=== PATIENT | male | born 1945 | race Caucasian/White ===

== ENCOUNTER 2022-06-10 11:19 | Emergency (ER) | payer MEDICARE, SELFPAY ==
[2022-06-10 11:47] VITALS: BP 141/85; PULSE 69; RESP 16; TEMP 36.2; O2SAT 100
--- NOTE | 2022-06-10 14:43 | ED_ITS ---
HPI - Allergic Reaction General: Chief complaint: Allergic Reaction Stated complaint: Rash, breaking out after meds change Time Seen by Provider: 06/10/22 14:43 Source: patient Mode of arrival: ambulatory History of Present Illness: HPI narrative: 76-year-old male comes in complaining of a rash she has a mild coalescing rash more than the skin folds. It began over the last several days he recently was started on lisinopril he stopped it after a few days the rash has begun to michael since that time. He has noticed his blood pressure going up MD complaint: allergic reaction Onset (ago): day(s) Associated symptoms: Reports rash; Deny abdominal pain, difficulty breathing, dysphagia, dizziness, facial swellin g, hoarseness, itching, lip swelling, nausea, tongue swelling or vomiting Severity: mild Treatment prior to arrival: none Previous Allergic Reaction History: none Review of Systems Const: Denies: fever(s), chills, body aches, change in appetite, fatigue or malaise ENMT: Denies: hoarseness Card: Denies: chest pain, edema, dyspnea on exertion or orthopnea Resp: Denies: dyspnea, productive cough or non-productive cough GI: Denies: abdominal pain, nausea, vomiting or dysphagia : Denies: flank pain, difficulty urinating, dysuria, urinary frequency or urinary urgency Skin/Breast: Denies: rash or pruritus Neuro: Denies: dizziness All/Imm: Denies: tongue swelling or facial swelling [facility] ED PFSH: Medical History (Updated 06/10/22 @ 15:29 by Jose Luis Robles DO) Hypertension Social History (Updated 06/10/22 @ 15:30 by Jose Luis Robles DO) Smoking and tobacco status: never smoked Alcohol intake: never Physical Exam Const: COMMON NORMALS: no acute distress GENERAL APPEARANCE: cooperative and comfortable ORIENTATION/CONSCIOUSNESS: Yes awake, Yes oriented to person, Yes oriented to place and Yes oriented to time HENMT: COMMON NORMALS: normocephalic, atraumatic and hearing grossly normal bilaterally HEAD & SCALP: normocephalic and atraumatic Neck/C-Spine: COMMON NORMALS: no JVD Resp: COMMON NORMALS: normal respiratory effort, No retractions, No use of accessory muscles and clear to auscultation bilaterally AUSCULTATION: clear to auscultation bilaterally Cardio: COMMON NORMALS: no JVD, regular rate, regular rhythm and No murmurs present (Cardio) RATE: regular rate RHYTHM: regular rhythm GI: COMMON NORMALS: Normal to inspection, nondistended, normoactive bowel sounds present, Soft to palpation and No hepatosplenomegaly present AUSCULTATION: Yes normoactive bowel sounds PALPATION: Yes Soft to palpation, No Tenderness to palpation present (GI), No Guarding due to palpation present (GI) and Yes No hepatosplenomegaly present Extremity: COMMON NORMALS: normal to inspection, capillary refill normal, no clubbing, cyanosis or edema, no calf tenderness and no pedal edema Neuro: SENSORIUM/ORIENTATION: Yes oriented to person, Yes oriented to place and Yes oriented to time Skin: OTHER: Faint coalescing rash mildly raised no vesicles nor induration no excoriation Course Vital Signs: Vital signs: Vital Signs Temperature 97.1 F L 06/10/22 11:47 Pulse Rate 69 06/10/22 11:47 Respiratory Rate 16 06/10/22 11:47 Blood Pressure 141/85 06/10/22 11:47 Pulse Oximetry 100 06/10/22 11:47 MDM - Allergic Reaction Medical Decision Making Mild rash already improving per the patient. Continue to stay off of the lisinopril add back amlodipine 5 daily recheck with primary care within a week to reassess blood pressure. Short course steroids Discharge Plan Discharge Patient Disposition: Home Clinical Impression: Adverse reaction to drug Condition: Stable Prescriptions: New amlodipine 5 mg tablet 5 mg PO DAILY Qty: 30 0RF Medrol (Farooq) 4 mg tablets,dose pack See Rx Instructions .ROUTE .COMPLEX Qty: 21 0RF Rx Instructions: orally per package directions No Action amoxicillin-pot clavulanate [Augmentin] 875-125 mg tablet 1 tab PO BID 10 Days Qty: 20 0RF furosemide 40 mg tablet 40 mg PO DAILY 0RF metoprolol tartrate 50 mg tablet 50 mg PO DAILY 0RF omeprazole 20 mg tablet,delayed release (DR/EC) 20 mg PO DAILY 0RF potassium chloride 20 mEq tablet extended release 20 meq PO DAILY 0RF rosuvastatin 40 mg tablet 40 mg PO DAILY 0RF fluoride (sodium) 0.2 % solution 10 ml dental DAILY 0RF tamsulosin 0.4 mg capsule 0.4 mg PO DAILY 0RF trazodone 100 mg tablet 100 mg PO DAILY 0RF Discharge Orders: Discharge ED (Routine); Ordered 06/10/22 Ordered By: Jose Luis Robles Referrals: Danelle Tony MD [Primary Care Provider] - Patient Instructions: Opioid Safety Activity Restrictions/Additional Instructions: Stop lisinopril, start amlodipine 5 mg daily. Prednisone taper for 1 week. Follow-up with your primary care doctor as scheduled on June 18 to reevaluate blood pressure. Coding Level of Care Code ED [employer] for Olena Barragan
[2022-06-10 14:53] VITALS: BP 173/90; PULSE 86; O2SAT 98
[2022-06-10 15:00] VITALS: BP 172/97; PULSE 82; O2SAT 96
[2022-06-10 15:45] VITALS: BP 159/84
== END 2022-06-10 15:20 | disposition home or self-care (01) ==
PROVIDERS: Emergency Provider Family Medicine; PCP Family Medicine
DX: L27.0 Generalized skin eruption due to drugs and medicaments taken internally (principal); T46.4X5A Adverse effect of angiotensin-converting-enzyme inhibitors, initial encounter; I10 Essential (primary) hypertension
CPT/HCPCS: 99283

== ENCOUNTER 2022-08-01 08:14 | Outpatient (CLI) | payer MEDICARE, OTHER, SELFPAY ==
--- NOTE | 2022-08-01 09:10 | ECG_ITS ---
[facility] Test Date: 2022-08-01 Pat Name: Marielos Vasquez Department: Room: Gender: Male Shearing Shed Hand: : 1945 Requested By: Perez Carrasquillo Order Number: [id number] Madai MD: Luis Guzman M.D. Measurements Intervals [place] Rate: 53 P: 42 OR: 230 QRS: -8 QRSD: 111 T: 80 QT: 482 QTc: 454 Interpretive Statements SINUS BRADYCARDIA WITH FIRST DEGREE AV BLOCK MODERATE INTRAVENTRICULAR CONDUCTION DELAY [110+ ms QRS DURATION] NONSPECIFIC ST & T-WAVE ABNORMALITY PROLONGED QT INTERVAL No previous ECG available for comparison Electronically Signed On 08-02-2022 14:42:33 CDT by Luis Guzman M.D. [email or web address]
== END 2022-08-01 08:15 | disposition home or self-care (01) ==
PROVIDERS: PCP Family Medicine; Visit Provider Specialist
DX: Z01.810 Encounter for preprocedural cardiovascular examination (principal); I44.0 Atrioventricular block, first degree; R00.1 Bradycardia, unspecified; H65.21 Chronic serous otitis media, right ear; H90.3 Sensorineural hearing loss, bilateral
CPT/HCPCS: 93005

== ENCOUNTER → 2022-12-26 08:20 | Outpatient (BNVA) | payer OTHER, SELFPAY | PROVIDERS: PCP Family Medicine; Visit Provider Internal Medicine Rheumatology | DX: Z79.899 Other long term (current) drug therapy (principal); M19.90 Unspecified osteoarthritis, unspecified site; M45.6 Ankylosing spondylitis lumbar region; R76.8 Other specified abnormal immunological findings in serum; Z11.59 Encounter for screening for other viral diseases; R06.02 Shortness of breath; J92.9 Pleural plaque without asbestos; J44.9 Chronic obstructive pulmonary disease, unspecified | CPT/HCPCS: 36415; 80076; 81001; 82306; 82565; 82570; 84156; 85025; 85651; 86140; 86160; 86162; 86200; 86235; 86255; 86376; 86431; 86480; 86704; 86800; 86803; 86812; 87340 ==

== ENCOUNTER → 2022-12-26 08:20 | Outpatient (BNVA) | payer OTHER, SELFPAY | PROVIDERS: PCP Family Medicine; Visit Provider Internal Medicine Rheumatology | DX: M19.90 Unspecified osteoarthritis, unspecified site (principal); Z79.899 Other long term (current) drug therapy; R76.8 Other specified abnormal immunological findings in serum; Z11.59 Encounter for screening for other viral diseases; R06.02 Shortness of breath; J44.9 Chronic obstructive pulmonary disease, unspecified; I51.7 Cardiomegaly; M77.8 Other enthesopathies, not elsewhere classified; Z11.1 Encounter for screening for respiratory tuberculosis; Z79.52 Long term (current) use of systemic steroids; K21.9 Gastro-esophageal reflux disease without esophagitis | CPT/HCPCS: 73130; 73630; 99204 ==

== ENCOUNTER 2023-01-09 07:46 | Outpatient (CLI) | payer OTHER, SELFPAY | END 2023-01-09 07:47 | disposition home or self-care (01) | LOC: RT 07:47 | PROVIDERS: PCP Family Medicine; Visit Provider Internal Medicine Rheumatology | DX: R06.02 Shortness of breath (principal); M19.90 Unspecified osteoarthritis, unspecified site; J92.9 Pleural plaque without asbestos | CPT/HCPCS: 94010; 94726; 94729 ==

== ENCOUNTER 2023-01-28 09:27 | Outpatient (CLI) | payer OTHER, SELFPAY ==
--- NOTE | 2023-01-28 10:00 | CT_ITS ---
WS: [id number] CT CHEST WITHOUT INTRAVENOUS CONTRAST HISTORY: R06.02 - Shortness of breath TECHNIQUE: Contiguous 5 mm axial imaging performed on the thorax. Coronal and sagittal reformats are submitted. All CT scans at [facility] use at least one of these dose optimization techniques: automated exposure control; mA and/or kV adjustment per patient size (includes targeted exams where dose is matched to clinical indication); or iterative reconstruction. CONTRAST: None DLP: 503.61 mGy.cm COMPARISON: None available. Lungs and central airway: Very small micronodules in the periphery RIGHT lower lobe. No mass or pneum onia. Pleura: Normal. No pleural effusion. Heart and pericardium: Very mild cardiomegaly. Prior CABG. Extensive coronary artery calcifications. Aortic valve replacement. Mediastinum and shweta: No adenopathy. Vessels: Mild atherosclerosis aorta. Normal size pulmonary artery. Chest wall and lower neck: No soft tissue masses. Upper abdomen: Normal visualized adrenal glands and gallbladder. No significant hiatal hernia. Osseous structures: No destructive bone lesions. Prior plate and screw fixation LEFT clavicle. CT/CT chest wo con [id number] IMPRESSION: 1. No pulmonary mass or pneumonia. 2. Prior CABG and aortic valve replacement. 3. No adenopathy. 4. No pulmonary fibrosis.
== END 2023-01-28 09:28 | disposition home or self-care (01) ==
LOC: RAD 09:29
PROVIDERS: PCP Family Medicine; Visit Provider Internal Medicine Rheumatology
DX: R06.02 Shortness of breath (principal); M19.90 Unspecified osteoarthritis, unspecified site; Z95.1 Presence of aortocoronary bypass graft; Z95.2 Presence of prosthetic heart valve
CPT/HCPCS: 36415; 71250; 80076; 81001; 82306; 82565; 82570; 84156; 85025; 85651; 86140; 86160; 86162; 86200; 86235; 86255; 86376; 86431; 86480; 86704; 86800; 86803; 86812; 87340

== ENCOUNTER → 2023-02-12 12:41 | Outpatient (BNVA) | payer OTHER, SELFPAY | PROVIDERS: PCP Family Medicine; Visit Provider Internal Medicine Rheumatology | DX: M19.90 Unspecified osteoarthritis, unspecified site (principal); Z79.899 Other long term (current) drug therapy; I51.7 Cardiomegaly; R06.02 Shortness of breath; J44.9 Chronic obstructive pulmonary disease, unspecified; R07.89 Other chest pain | CPT/HCPCS: 99214 ==

== ENCOUNTER 2023-04-23 10:15 | Outpatient (CLI) | payer OTHER, SELFPAY ==
[2023-04-23 10:40] LABS: Basophils # 0.1 10^3/uL (0.0-0.1); Basophils % 1.5 %; Eosinophils # 0.5 10^3/uL (0.0-0.8); Eosinophils % 8.7 %; Hematocrit 44.9 % (42.0-52.0); Hemoglobin 14.8 g/dL (11.7-16.6); Lymphocytes # 1.3 10^3/uL (0.8-4.8); Lymphocytes % 20.9 %; Mean Corpuscular Hemoglobin 29.2 pg (28.0-34.0); Mean Corpuscular Volume 88.7 fl (80-94); Mean Platelet Volume 10.5 fL (7.4-10.4); Monocytes # 0.7 10^3/uL (0.2-0.9); Monocytes % 12.1 %; Neutrophils # 3.46 10^3/uL (1.8-7.7); Neutrophils % 56.5 %; Nucleated Red Blood Cells % 0 %; Platelet Count 157 10^3/cmm (130-400); Red Blood Count 5.06 10^6/uL (4.1-5.3); Red Cell Distribution Width 12.9 % (12.1-15.1); White Blood Count 6.1 10^3/uL (4.0-10.0)
[2023-04-23 11:40] LABS: Alanine Aminotransferase 31 U/L (0-41); Albumin Level 4.4 g/dL (3.5-5.2); Alkaline Phosphatase 83 U/L (40-130); Globulin 2.4 g/dL (1.3-4.6); Thyroid Stimulating Hormone 2.46 uIU/mL (0.27-4.20); Total Bilirubin 0.6 mg/dL (0.15-1.2); Total Protein 6.8 g/dL (6.6-8.7)
[2023-04-23 14:20] LABS: Free T4 Free Thyroxine 1.17 ng/dL (0.82-1.77)
[2023-04-23 15:38] LABS: Aspartate Amino Transferase 27 U/L (0-40)
== END 2023-04-23 10:16 | disposition home or self-care (01) ==
PROVIDERS: PCP Family Medicine; Visit Provider Internal Medicine Rheumatology
DX: M19.90 Unspecified osteoarthritis, unspecified site (principal); I51.7 Cardiomegaly; Z79.899 Other long term (current) drug therapy
CPT/HCPCS: 36415; 80076; 82565; 84439; 84443; 85025; 86140

== ENCOUNTER → 2023-05-07 13:30 | Outpatient (BNVA) | payer OTHER, SELFPAY | PROVIDERS: PCP Family Medicine; Visit Provider Internal Medicine Rheumatology | DX: R76.8 Other specified abnormal immunological findings in serum (principal); M19.90 Unspecified osteoarthritis, unspecified site; Z79.899 Other long term (current) drug therapy | CPT/HCPCS: 99214 ==

== ENCOUNTER 2023-07-23 09:33 | Outpatient (CLI) | payer OTHER, SELFPAY ==
[2023-07-23 10:17] LABS: Basophils # 0.1 10^3/uL (0.0-0.1); Eosinophils # 0.6 10^3/uL (0.0-0.8); Hematocrit 45.9 % (37-53); Lymphocytes # 1.3 10^3/uL (0.8-4.8); Lymphocytes % 19.9 %; Mean Corpuscular HGB Conc 33.6 g/dL (30-55); Mean Corpuscular Hemoglobin 30.4 pg (27-33); Mean Corpuscular Volume 90.5 fl (82-101); Mean Platelet Volume 10.8 fL (7.4-10.4); Monocytes # 0.7 10^3/uL (0.2-0.9); Monocytes % 9.9 %; Neutrophils # 4.01 10^3/uL (1.8-7.7); Neutrophils % 59.9 %; Nucleated Red Blood Cells % 0 %; Platelet Count 167 10^3/cmm (157-399); Red Blood Count 5.07 10^6/uL (3.85-5.65); Red Cell Distribution Width 12.9 % (12.1-15.1); White Blood Count 6.69 10^3/uL (3.29-11.43)
[2023-07-23 10:39] LABS: Albumin Level 4.5 g/dL (3.5-5.2); Alkaline Phosphatase 77 U/L (40-130); Globulin 2.6 g/dL (1.3-4.6); Total Bilirubin 0.6 mg/dL (0.15-1.2); Total Protein 7.1 g/dL (6.6-8.7)
[2023-07-23 11:06] LABS: Alanine Aminotransferase 22 U/L (0-41); Aspartate Amino Transferase 21 U/L (0-40)
== END 2023-07-23 09:34 | disposition home or self-care (01) ==
PROVIDERS: PCP Family Medicine; Visit Provider Internal Medicine Rheumatology
DX: M19.90 Unspecified osteoarthritis, unspecified site (principal); Z79.899 Other long term (current) drug therapy
CPT/HCPCS: 36415; 80076; 82565; 85025; 86140

== ENCOUNTER → 2023-07-30 13:54 | Outpatient (BNVA) | payer OTHER, SELFPAY | PROVIDERS: PCP Family Medicine; Visit Provider Internal Medicine Rheumatology | DX: M19.90 Unspecified osteoarthritis, unspecified site (principal); Z79.899 Other long term (current) drug therapy; R76.8 Other specified abnormal immunological findings in serum | CPT/HCPCS: 99214 ==

== ENCOUNTER 2023-11-10 09:11 | Outpatient (CLI) | payer OTHER, SELFPAY | END 2023-11-10 09:12 | disposition home or self-care (01) | LOC: LAB 09:14 | PROVIDERS: PCP Family Medicine; Visit Provider Specialist | DX: Z01.812 Encounter for preprocedural laboratory examination (principal) | CPT/HCPCS: 36415; 80048; 80076; 82565; 85025; 86140; 93005 ==

== ENCOUNTER 2023-11-25 05:42 | Day surgery (SDC) | payer OTHER, SELFPAY ==
[2023-11-25] VITALS (10 sets, daily range): BP systolic 114–153; BP diastolic 64–91; PULSE 51–81; RESP 16–23; TEMP 36.1–36.6; O2SAT 91–95; BMI 31.1
[2023-11-25] MEDS: sodium chloride 0.9% 1,000 ML 30 ML IV (06:30)
--- NOTE | 2023-11-25 06:44 | W.PM.OPSUD ---
Surgery/Procedure H&P Update DATE OF PROCEDURE: November 25, 2023 DATE H&P PERFORMED: 11/10/23 PRIMARY INDICATION FOR PROCEDURE: Chronic Eustachian Tube Dysfunction, Right Ear PLANNED PROCEDURE: Operation Date: 11/25/23 07:00 Proposed Procedures p R Myringotomy and Tubes [id number],h65.21(Right) - Perez Gore MD
[2023-11-25] MEDS: ciprofloxacin-dexameth Otic Susp 7.5 mL Btl 4 DROP EAR-BOTH (07:11)
[2023-11-25] MEDS: EPINEPHrine 1 mg/mL INJ 0.5 MG XX (07:15)
--- NOTE | 2023-11-25 07:25 | PM.OP ---
Operative Report Date of procedure: November 25, 2023 Pre-op diagnosis: Chronic Eustachian Tube Dysfunction, Right ear Post-op diagnosis: same Post-op findings: Otitis media with effusion, Right ear Tympanosclerosis, right ear Procedure done: Right ear myringotomy with 'T' tube placement Implants: Right 'T' Tube Specimens removed/disposition: None Pathology: None Surgeon: Perez Gore Surgeon: Perez Gore MD Anesthesia: General Estimated blood loss (mL): 1 IV fluids (mL): 200 Complications: None Findings: Otitis media with effusion, Right ear Tympanosclerosis, Right Tympanic membrane Condition: stable Disposition: PACU Brief History: 78 yo wm with a h/o chronic eustachian tube dysfunction of the right ear who desires surgical therapy. Procedure: The patient was identified in the preoperative holding area and was taken to the operating room and was placed on the operating table in the supine position. Anesthesia was obtained with general anesthesia and the patient's head was turned to the left exposing the right ear to the operating surgeon. A radial myringotomy was performed in the anterior-inferior quadrant of the patient's right tympanic membrane with a myringotomy knife. A T-tube was placed in the myringotomy site with alligator forceps. Once the tube was in the proper position, the right ear was filled with Ciprodex otic suspension followed by a cottonball. The procedure was then terminated and control of the patient was returned to anesthesia where he underwent uneventful reversal of anesthesia and was taken to the recovery room in stable condition. There were no operative or anesthetic complications.
--- NOTE | 2023-11-25 07:40 | ANES.PREANE2 ---
Pre-Anesthetic Assessment Height/Weight: Height 1.7 m Weight 90.265 kg Temp Pulse Resp BP Pulse Ox O2 Del Method 97.0 F L 57 L 17 139/80 91 Room Air 11/25/23 07:27 11/25/23 07:32 11/25/23 07:32 11/25/23 07:32 11/25/23 07:32 11/25/23 07:32 Operation Date: 11/25/23 07:00 Proposed Procedures p R Myringotomy and Tubes [id number],h65.21(Right) - Perez Gore MD Familial anesthetic complications: Delayed awakening Was Beta Emani taken within 24 hours: N/A Was Clonidine taken within 24 hours: N/A Last intake: Intake Last Liquid Date 11/24/23 Last Liquid Time 20:00 Last Solid Date 11/24/23 Last Solid Time 20:30 Social No alcohol and No tobacco Exam alert, oriented x 3, clear to auscultation bilaterally and regular rate & rhythm Airway Submandibular: within normal limits Cervical ROM: within normal limits Mallampati: Class II Dentition: full Pulmonary Chronic Obstructive Pulmonary Disease CV/HEM Coronary Artery Disease (CABG 2 vessel, AVR) and Hypertension GI Gastroesophageal Reflux Disease Metabolic Hyperlipidemia Chronic steroid Anesthetic Plan ASA status: 3 Anesthesia: General Medications/Allergies Home Medications Medication Instructions Recorded Confirmed Last Taken Type fluoride (sodium) 0.2 % dental 10 ml dental DAILY 01/26/22 11/21/23 11/21/23 History solution omeprazole 20 mg tablet,delayed 20 mg PO DAILY 01/26/22 11/21/23 11/25/23 History release rosuvastatin 40 mg tablet 40 mg PO DAILY 01/26/22 11/21/23 11/24/23 History tamsulosin 0.4 mg capsule 0.4 mg PO DAILY 01/26/22 11/21/23 11/24/23 History trazodone 100 mg tablet 100 mg PO DAILY 01/26/22 11/21/23 11/24/23 History amlodipine 5 mg tablet 5 mg PO DAILY #30 tabs 06/10/22 11/21/23 11/25/23 Rx antiarthritic combination no.2 900 900 mg PO DAILY 12/26/22 11/21/23 11/24/23 History mg tablet (glucosamine-chondroitin) aspirin 81 mg tablet,delayed 81 mg PO DAILY 12/26/22 11/21/23 11/24/23 History release (Adult Aspirin Regimen) cholecalciferol (vitamin D3) 125 125 mcg PO DAILY 12/26/22 11/21/23 11/24/23 History mcg (5,000 unit) capsule coenzyme Q10 10 mg capsule (Co 10 mg PO DAILY 12/26/22 11/21/23 11/24/23 History Q-10) furosemide 40 mg tablet 40 mg PO BID 12/26/22 11/25/23 11/24/23 History potassium chloride 20 mEq 20 meq PO BID 12/26/22 11/21/23 11/24/23 History tablet,extended release tumeric 100 mg-mckinley 150 mg-olive 1 cap PO DAILY 12/26/22 11/21/23 11/24/23 History 50 mg-oreg 150 mg-caprylate capsule diclofenac sodium 1 % topical gel 2 g topical QID #100 grams 05/07/23 11/21/23 11/19/23 Rx hydroxychloroquine 200 mg tablet See Rx Instructions .Route 11/12/23 11/21/23 11/24/23 Rx .COMPLEX #180 tabs acetaminophen 300 mg-codeine 30 mg 1 tab PO Q8H PRN Pain 11/21/23 11/21/23 11/19/23 History tablet prednisone 10 mg tablet 10 mg PO 1XD PRN joint pain 11/21/23 11/21/23 11/20/23 History dorzolamide 22.3 mg-timolol 6.8 1 drp ophthalmic (eye) 2XD 11/25/23 11/25/23 11/25/23 History mg/mL eye drops (Cosopt) Allergies Allergy/AdvReac Type Severity Reaction Status Date / Time lisinopril Allergy Severe adverse Verified 11/21/23 15:00 reaction Current Medications Generic Name Dose Route Start Last Admin Trade Name Freq PRN Reason Stop Dose Admin Ciprofloxacin/Dexamethasone 4 drop 11/25/23 09:00 11/25/23 07:11 Ciprofloxacin-Dexameth Otic Susp 7.5 Ml Btl EAR-BOTH 4 drop BID SAHARA Administration Protocol Sodium Chloride 1,000 mls @ 30 mls/hr 11/25/23 06:00 11/25/23 06:30 Sodium Chloride 0.9% IV 11/26/23 05:59 30 mls/hr .Q24H SAHARA Administration PFSH Anesthesia Medical History Anti-TPO antibodies present Cardiomegaly Chronic shortness of breath Chronic steroid use COPD (chronic obstructive pulmonary disease) Costochondral chest pain GERD (gastroesophageal reflux disease) Heart disease High risk medication use History of hypercholesterolemia Hypertension Inflammatory arthritis Joint pain Positive JAS (antinuclear antibody) Surgical History H/O heart artery stent 09/2011 H/O heart bypass surgery Dble bypass and valve replacement 01/2017 Family History Other Cancer Diabetes Family history of premature coronary artery disease Hyperlipidemia Lupus Rheumatoid arthritis Denies family history of Lung disease Hypertension Stroke Social History Smoking and tobacco/nicotine status: never used tobacco/nicotine Alcohol intake: never Data Anesthesia Cardiac Studies: No Data to Display
--- NOTE | 2023-11-25 13:39 | ANE.PACU2 ---
Inpatient post-anesthesia follow up: Airway intact: Yes Vital signs: Temperature 97.5 F Pulse Rate 51 Respiratory Rate 17 Blood Pressure 114/66 Pulse Oximetry 92 Oxygen Delivery Me thod Room Air Oxygen Flow Rate Fraction of Inspir ed Oxygen Hydration adequate: Yes Nausea and vomiting: No Pain level: 2 Mental status: Baseline
== END 2023-11-25 08:46 | disposition home or self-care (01) ==
PROVIDERS: PCP Family Medicine; Visit Provider Specialist
PROC: (CPT 69420; principal; 2023-11-25 07:00)
DX: H69.91 Unspecified Eustachian tube disorder, right ear (principal); H65.91 Unspecified nonsuppurative otitis media, right ear; H74.01 Tympanosclerosis, right ear; J44.9 Chronic obstructive pulmonary disease, unspecified; I25.10 Atherosclerotic heart disease of native coronary artery without angina pectoris; Z95.1 Presence of aortocoronary bypass graft; K21.9 Gastro-esophageal reflux disease without esophagitis; Z79.52 Long term (current) use of systemic steroids; E78.5 Hyperlipidemia, unspecified; I11.0 Hypertensive heart disease with heart failure; I50.9 Heart failure, unspecified
CPT/HCPCS: 69436; J0171; J2704; J3010; J7030

== ENCOUNTER → 2023-12-03 13:48 | Outpatient (BNVA) | payer OTHER, SELFPAY | PROVIDERS: PCP Family Medicine; Visit Provider Internal Medicine Rheumatology | DX: Z79.899 Other long term (current) drug therapy (principal); M19.90 Unspecified osteoarthritis, unspecified site; R76.8 Other specified abnormal immunological findings in serum | CPT/HCPCS: 36415; 85025; 99214 ==

== ENCOUNTER 2024-03-08 09:34 | Outpatient (CLI) | payer OTHER, SELFPAY ==
[2024-03-08 10:50] LABS: Basophils # 0.1 10^3/uL (0.0-0.1); Basophils % 1.5 %; Eosinophils # 0.4 10^3/uL (0.0-0.8); Eosinophils % 6.5 %; Hematocrit 44.9 % (37-53); Lymphocytes # 0.9 10^3/uL (0.8-4.8); Lymphocytes % 13.9 %; Mean Corpuscular HGB Conc 33.4 g/dL (30-55); Mean Corpuscular Volume 89.8 fl (82-101); Mean Platelet Volume 11.2 fL (7.4-10.4); Monocytes # 0.6 10^3/uL (0.2-0.9); Monocytes % 9.7 %; Neutrophils % 68.1 %; Nucleated Red Blood Cells % 0 %; Platelet Count 156 10^3/cmm (157-399); Red Cell Distribution Width 13.2 % (12.1-15.1); White Blood Count 6.61 10^3/uL (3.29-11.43)
== END 2024-03-08 09:35 | disposition home or self-care (01) ==
LOC: LAB 09:36
PROVIDERS: PCP Family Medicine; Visit Provider Internal Medicine Rheumatology
DX: D69.6 Thrombocytopenia, unspecified (principal)
CPT/HCPCS: 36415; 85025

== ENCOUNTER → 2024-03-24 13:00 | Outpatient (BNVA) | payer OTHER, SELFPAY | PROVIDERS: PCP Family Medicine; Visit Provider Internal Medicine Rheumatology | DX: Z79.899 Other long term (current) drug therapy (principal); R76.8 Other specified abnormal immunological findings in serum; M06.041 Rheumatoid arthritis without rheumatoid factor, right hand; M06.042 Rheumatoid arthritis without rheumatoid factor, left hand | CPT/HCPCS: 36415; 80076; 82565; 99214 ==

== ENCOUNTER 2024-09-15 09:28 | Outpatient (CLI) | payer OTHER, SELFPAY ==
[2024-09-15 09:53] LABS: Basophils % 0.5 %; Eosinophils # 0.2 10^3/uL (0.0-0.8); Eosinophils % 2.1 %; Lymphocytes # 1.4 10^3/uL (0.8-4.8); Lymphocytes % 17.9 %; Mean Corpuscular HGB Conc 32.9 g/dL (30-55); Mean Corpuscular Hemoglobin 29.7 pg (27-33); Mean Corpuscular Volume 90.4 fl (82-101); Mean Platelet Volume 10.6 fL (7.4-10.4); Monocytes # 0.8 10^3/uL (0.2-0.9); Monocytes % 10.1 %; Neutrophils % 68.9 %; Nucleated Red Blood Cells % 0 %; Platelet Count 164 10^3/cmm (157-399); Red Blood Count 4.98 10^6/uL (3.85-5.65); Red Cell Distribution Width 12.7 % (12.1-15.1); White Blood Count 7.99 10^3/uL (3.29-11.43)
[2024-09-15 09:56] LABS: Erythrocyte Sedimentation Rate < 1 mm/hr (0-10)
[2024-09-15 10:19] LABS: Alanine Aminotransferase 31 U/L (0-41); Albumin Level 4.4 g/dL (3.5-5.2); Alkaline Phosphatase 68 U/L (40-130); Aspartate Amino Transferase 18 U/L (0-40); Total Bilirubin 0.5 mg/dL (0.15-1.2); Total Protein 6.4 g/dL (6.6-8.7)
== END 2024-09-15 09:29 | disposition home or self-care (01) ==
LOC: LAB 09:29
PROVIDERS: PCP Family Medicine; Visit Provider Internal Medicine Rheumatology
DX: Z79.899 Other long term (current) drug therapy (principal); M06.041 Rheumatoid arthritis without rheumatoid factor, right hand; M06.042 Rheumatoid arthritis without rheumatoid factor, left hand
CPT/HCPCS: 36415; 80076; 82565; 85025; 85651; 86140

== ENCOUNTER → 2024-11-10 11:00 | Outpatient (BNVA) | payer OTHER, SELFPAY | PROVIDERS: PCP Family Medicine; Visit Provider Internal Medicine Rheumatology | DX: M06.041 Rheumatoid arthritis without rheumatoid factor, right hand (principal); M06.042 Rheumatoid arthritis without rheumatoid factor, left hand; Z79.899 Other long term (current) drug therapy; R76.8 Other specified abnormal immunological findings in serum; M19.041 Primary osteoarthritis, right hand; M19.042 Primary osteoarthritis, left hand | CPT/HCPCS: 99214 ==

== ENCOUNTER 2025-02-25 11:41 | Outpatient (CLI) | payer OTHER, SELFPAY ==
[2025-02-25 12:09] LABS: Basophils # 0.1 10^3/uL (0.0-0.1); Basophils % 1.6 %; Eosinophils # 0.4 10^3/uL (0.0-0.8); Eosinophils % 5.5 %; Hematocrit 46.4 % (37-53); Lymphocytes # 1.4 10^3/uL (0.8-4.8); Lymphocytes % 21.1 %; Mean Corpuscular HGB Conc 32.1 g/dL (30-55); Mean Corpuscular Hemoglobin 29.3 pg (27-33); Mean Corpuscular Volume 91.3 fl (82-101); Mean Platelet Volume 10.8 fL (7.4-10.4); Monocytes # 0.6 10^3/uL (0.2-0.9); Monocytes % 9.8 %; Neutrophils # 3.95 10^3/uL (1.8-7.7); Neutrophils % 61.7 %; Nucleated Red Blood Cells % 0 %; Platelet Count 158 10^3/cmm (157-399); Red Blood Count 5.08 10^6/uL (3.85-5.65)
[2025-02-25 12:23] LABS: Erythrocyte Sedimentation Rate < 1 mm/hr (0-10)
[2025-02-25 12:26] LABS: Alanine Aminotransferase 23 U/L (0-41); Albumin Level 4.3 g/dL (3.5-5.2); Alkaline Phosphatase 72 U/L (40-130); Aspartate Amino Transferase 17 U/L (0-40); Globulin 2.1 g/dL (1.3-4.6); Total Bilirubin 0.5 mg/dL (0.15-1.2); Total Protein 6.4 g/dL (6.6-8.7)
== END 2025-02-25 11:42 | disposition home or self-care (01) ==
PROVIDERS: PCP Family Medicine; Visit Provider Internal Medicine Rheumatology
DX: Z79.899 Other long term (current) drug therapy (principal); M06.041 Rheumatoid arthritis without rheumatoid factor, right hand; M06.042 Rheumatoid arthritis without rheumatoid factor, left hand
CPT/HCPCS: 36415; 80076; 82565; 85025; 85651; 86140

== ENCOUNTER → 2025-03-09 10:51 | Outpatient (BNVA) | payer OTHER, SELFPAY | PROVIDERS: PCP Family Medicine; Visit Provider Internal Medicine Rheumatology | DX: Z79.899 Other long term (current) drug therapy (principal); R76.8 Other specified abnormal immunological findings in serum; M06.041 Rheumatoid arthritis without rheumatoid factor, right hand; M06.042 Rheumatoid arthritis without rheumatoid factor, left hand | CPT/HCPCS: 99214 ==

== ENCOUNTER 2025-06-28 09:20 | Outpatient (CLI) | payer OTHER, SELFPAY ==
[2025-06-28 09:53] LABS: Hematocrit 47.5 % (37-53); Hemoglobin 15.60 g/dL (11.27-16.99); Mean Corpuscular HGB Conc 32.8 g/dL (30-55); Mean Corpuscular Hemoglobin 29.5 pg (27-33); Mean Corpuscular Volume 90.0 fl (82-101); Nucleated Red Blood Cells % 0 %; Platelet Count 184 10^3/cmm (157-399); Red Blood Count 5.28 10^6/uL (3.85-5.65); White Blood Count 6.49 10^3/uL (3.29-11.43)
[2025-06-28 10:18] LABS: Alanine Aminotransferase 22 U/L (0-41); Albumin Level 4.6 g/dL (3.5-5.2); Alkaline Phosphatase 87 U/L (40-130); Aspartate Amino Transferase 21 U/L (0-40); Globulin 3.0 g/dL (1.3-4.6); Total Protein 7.6 g/dL (6.6-8.7)
== END 2025-06-28 09:21 | disposition home or self-care (01) ==
LOC: LAB 09:21
PROVIDERS: PCP Family Medicine; Visit Provider Internal Medicine Rheumatology
DX: Z79.899 Other long term (current) drug therapy (principal)
CPT/HCPCS: 36415; 80076; 82565; 85025; 85651; 86140

== ENCOUNTER → 2025-07-07 10:12 | Outpatient (BNVA) | payer OTHER, SELFPAY | PROVIDERS: PCP Family Medicine; Visit Provider Internal Medicine Rheumatology | DX: Z79.899 Other long term (current) drug therapy (principal); R76.8 Other specified abnormal immunological findings in serum; M06.041 Rheumatoid arthritis without rheumatoid factor, right hand; M06.042 Rheumatoid arthritis without rheumatoid factor, left hand | CPT/HCPCS: 99214 ==

== ENCOUNTER 2025-09-01 08:38 | Outpatient (CLI) | payer OTHER, SELFPAY ==
--- NOTE | 2025-09-01 08:46 | CT_ITS ---
WS: [id number] CT ABDOMEN WITH AND WITHOUT CONTRAST HISTORY: Right-sided abdominal pain for 7 weeks with indigestion. Multiphase imaging performed through the abdomen. Oral contrast has been provided. Coronal and sagittal reformats are submitted. All CT scans at [facility] use at least one of these dose optimization techniques: automated exposure control; mA and/or kV adjustment per patient size (includes targeted exams where dose is matched to clinical indication); or iterative reconstruction. IV CONTRAST: Omnipaque 350; 100 mL IV. Oral contrast: Yes. DLP: 896.54 mGy.cm COMPARISON: 08/09/2018 Lower thorax: Micronodules at the lung bases. No mass. Some of these micronodules are calcified. Mild enlargement of the heart. Aortic valve replacement. No hiatal hernia. Liver/biliary system: Normal size liver. Very minimal focal fatty sparing along the falciform ligament. Normal portal vein. No intrahepatic duct dilatation. Gallbladder: Normally distended gallbladder with inflammation. Gallstone suspected. Pancreas: Normal size pancreas and pancreatic duct. No adjacent inflammation. Spleen: Normal size spleen. No mass or infarct. Adrenal glands: Normal. Right kidney: Normal size kidney with no obstruction. Hypodense 4.8 mm mass from the posterior mid kidney. May be hemorrhagic cyst. Left kidney: Normal size kidney. Exophytic cyst from the lower pole measures 3.3 x 3.7 cm. No solid mass. Aorta: Atherosclerotic plaque within the abdominal aorta. At the aortic bifurcation there is a large pseudoaneurysm extending posteriorly. Pseudoaneurysm is contained but there is an ulceration extending in this to the surrounding thrombus and filling with contrast. The entire pseudoaneurysm with penetrating ulcer extends over a length of 4.3 cm and transversely by 4.1 cm. Pseudoaneurysm with penetrating ulcers along the posterior aspect of the aorta at the level of the bifurcation. There is no adjacent edema or evidence for acute rupture at this time. Heavy calcified plaque extends into the iliac a rteries. 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 Compression of the LEFT renal vein by the pseudoaneurysm but no occlusion. Lymphadenopathy: None. Free fluid: None. GI tract: No GI tract obstruction. Extensive diverticular disease noted in the descending and sigmoid colon. The entire colon is not as included as only an abdomen CT has been requested. There is wall thickening and narrowing of the lumen at the splenic flecture. Proximal to the wall thickening in the splenic flexure there is a mild constipation. Pericolonic stranding at the splenic flexure. Abdominal wall: Unremarkable abdominal wall. No hernia. Visualized osseous structures: Unremarkable. CT/CT abdomen wo/w con [id number] IMPRESSION: 1. 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 The entire pseudoaneurysm measures 4.3 x 4.1 cm and needs to be evaluated by vascular surgery at this time. No ac daphnie rupture is identified. Pseudoaneurysm is causing mild compression of the re troaortic LEFT renal vein. 2. Colonic wall thickening and narrowing with pericolonic stranding involving the splenic flexure. Neoplasm needs to be excluded. Differential would include colitis. 3. Extensive diverticulosis disease involving the descending and visualized si gmoid colon. Notified Saumya Mares APRN at 09/01/2025 3:11 PM.
[2025-09-01] MEDS: iohexol 350 mg/mL 500 mL Btl (per mL) PO (09:34)
[2025-09-01] MEDS: iohexol 350 mg/mL 500 mL Btl (per mL) IV (09:34)
[2025-09-01 09:37] LABS: Blood Urea Nitrogen 7 mg/dL (8-23)
== END 2025-09-01 08:39 | disposition home or self-care (01) ==
LOC: RAD 08:40
PROVIDERS: Radiology Diagnostic Radiology; PCP Family Medicine; Visit Provider Nurse Practitioner Family
DX: K30 Functional dyspepsia (principal); R91.8 Other nonspecific abnormal finding of lung field; I51.7 Cardiomegaly; Z95.2 Presence of prosthetic heart valve; N28.89 Other specified disorders of kidney and ureter; N28.1 Cyst of kidney, acquired; I71.9 Aortic aneurysm of unspecified site, without rupture; K57.30 Diverticulosis of large intestine without perforation or abscess without bleeding; K59.00 Constipation, unspecified
CPT/HCPCS: 74170; 82565; 84520

== ENCOUNTER → 2025-11-21 10:26 | Outpatient (BNVA) | payer OTHER, SELFPAY | PROVIDERS: PCP Family Medicine; Visit Provider Internal Medicine Rheumatology | DX: R76.89 Other specified abnormal immunological findings in serum (principal); Z79.899 Other long term (current) drug therapy; M06.041 Rheumatoid arthritis without rheumatoid factor, right hand; M06.042 Rheumatoid arthritis without rheumatoid factor, left hand | CPT/HCPCS: 80076; 82306; 82565; 82657; 85025; 85651; 86140; 86480; 99214 ==